=== PATIENT | male | born 1990 | race Caucasian/White ===

== ENCOUNTER 2018-11-29 14:20 | Emergency (ER) | payer BC ==
[2018-11-29 16:44] VITALS: BP 112/72
--- NOTE | 2018-11-29 17:20 | ED ---
Lower Extremity - HPI Summary HPI Summary: Patient is a 28-year-old male presenting to the ED with right foot discoloration. He states a few days ago he was bending over with his foot flexed at the midfoot for several minutes without rest. Immediately following he began to develop discoloration to the foot of erythematous "dots" and bruising. He denies pain. Denies temperature changes. Denies numbness or tingling or weakness. Denies bleeding disorder. Denies other concerns or symptoms. - History of Current Complaint Chief Complaint: EDExtremityLower Stated Complaint: RIGHT FOOT INJURY Time Seen by Provider: 11/29/18 14:42 Hx Obtained From: Patient Onset of Pain: Hours, Days Onset/Duration: Days Severity Initially: Mild Severity Currently: Mild Pain Intensity: 3 Pain Scale Used: 0-10 Numeric Timing: Constant Location: Is Discrete @ - right foot Associated Signs And Symptoms: Positive: Swelling, Redness - Risk Factors Gout Risk Factors: Negative DVT Risk Factors: Negative Septic Arthritis Risk Factor: Negative - Allergies/Home Medications Allergies/Adverse Reactions: Allergies Allergy/AdvReac Type Severity Reaction Status Date / Time No Known Allergies Allergy Verified 11/29/18 14:27 PMH/Surg Hx/FS Hx/Imm Hx Previously Healthy: Yes - Immunization History Hx Pertussis Vaccination: No Immunizations Up to Date: Yes Infectious Disease History: Unable to Obtain/Confirm Infectious Disease History: Denies: Traveled Outside the in Last 30 Days - Social History Occupation: Employed Full-time Lives: With Family Alcohol Use: Weekly Hx Substance Use: No Substance Use Type: Reports: None Smoking Status (MU): Never Smoked Tobacco Review of Systems Constitutional: Negative Negative: Fever, Chills, Fatigue, Skin Diaphoresis Negative: Palpitations, Chest Pain Negative: Shortness Of Breath, Cough Negative: Arthralgia, Myalgia Positive: Other - petetchia and purura with swelling and erythema Negative: Headache, Weakness Psychological: Normal All Other Systems Reviewed And Are Negative: Yes Physical Exam Triage Information Reviewed: Yes Vital Signs On Initial Exam: Initial Vitals Temp Pulse Resp BP Pulse Ox 96.7 F 130 18 152/85 97 11/29/18 14:21 11/29/18 14:21 11/29/18 14:21 11/29/18 14:21 11/29/18 14:21 Vital Signs Reviewed: Yes Appearance: Positive: Well-Appearing, Well-Nourished Skin: Positive: Warm, Skin Color Reflects Adequate Perfusion Head/Face: Positive: Normal Head/Face Inspection Eyes: Positive: EOMI, Conjunctiva Clear Neck: Positive: No Lymphadenopathy Respiratory/Lung Sounds: Positive: Clear to Auscultation, Breath Sounds Present Cardiovascular: Positive: RRR, Pulses are Symmetrical in both Upper and Lower Extremities Musculoskeletal: Positive: Strength/ROM Intact Neurological: Positive: Speech Normal Psychiatric: Positive: Affect/Mood Appropriate AVPU Assessment: Alert Diagnostics - Vital Signs Vital Signs Temp Pulse Resp BP Pulse Ox 11/29/18 16:42 98.5 F 115 18 112/72 96 11/29/18 14:21 96.7 F 130 18 152/85 97 - Laboratory Lab Statement: Any lab studies that have been ordered have been reviewed, and results considered in the medical decision making process. Lower Extremity Course/Dx - Course Course Of Treatment: During the course treatment, the patient is evaluated for right foot swelling and discoloration. She states he had the foot flexed at the mid foot for several minutes to 30min a few days ago and developed discoloration soon following. He denies any numbness or tingling. Denies any temperature changes. He states the foot swelled up as well as became discolored within approximately 1 hour after getting up. Denies any pain to the area. Patient remains ambulatory. On physical examination, there is petechia and purpura throughout the foot with swelling. Slight warmth to the area. This extends just distal to the ankle. The purpur and petechia look as though this is inflammatory and injured, however no fx is noted on xray. As patient has some small areas of insertion (one small cut), he will also be treated for a cellulitis. Denies pain. Pulses +2 intact. - Diagnoses Provider Diagnoses: Petechiae, Foot swelling Discharge - Sign-Out/Discharge Documenting (check all that apply): Patient Departure Patient Received Moderate/Deep Sedation with Procedure: No - Discharge Plan Condition: Stable Disposition: HOME Prescriptions: Cephalexin CAP* [Keflex CAP*] 500 mg PO TID #28 cap MDD 3 Patient Education Materials: Purpura (ED) Forms: *Work Release Referrals: Preston Jimenes [Primary Care Provider] - Additional Instructions: You have some evidence of vessel injury/vasculitis also sometimes called petechia or purpura Elevate the extremity as much as possible Ice to the area If he develop any worsening discolorations, he continued to have worsening numbness or tingling in the area or the redness or rash starts traveling up the leg, he needs to return to the ED immediately. You also have some evidence of cellulitis, so we will cover with Keflex Do not hesitate to return if you develop ANY symptoms - Billing Disposition and Condition Condition: STABLE Disposition: Home
== END 2018-11-29 16:42 | disposition home or self-care (01) ==
LOC: ED 14:20
DX: D69.2 Other nonthrombocytopenic purpura (principal); M79.89 Other specified soft tissue disorders
CPT/HCPCS: 99282